=== PATIENT | female | born 1965 | race Two or more races ===

== ENCOUNTER → 2025-08-07 | Outpatient (CLI) | payer MEDICAID, SELFPAY ==
--- NOTE | 2025-08-07 12:30 | XR_ITS ---
EXAMINATION: Thyroid sonography complete TECHNIQUE: Grayscale sonographic images thyroid lobes Date and time: August 07, 2025, 1308 hours INDICATIONS: Diagnosis thyroid nodules difficulty swallowing 18 months FINDINGS: Right thyroid 4.1 cm Upper pole vascular nodule 21 x 17 x 13 mm Isthmus cyst 9 x 4 x 8 mm Left thyroid 4.2 cm Mid pole vascular nodule 11 x 6 x 8 mm Lower pole vascular nodule 14 x 9 x 10 mm IMPRESSION: Thyroid nodules as above, consider ultrasound-guided fine-needle aspiration of the largest vascular nodule in the upper pole right thyroid
== END | disposition home or self-care (01) ==
PROVIDERS: PCP Nurse Practitioner Family; Referring Provider Nurse Practitioner Family; Visit Provider Nurse Practitioner Family
DX: E04.2 Nontoxic multinodular goiter (principal)
CPT/HCPCS: 76536